=== PATIENT | female | born 1940 | race Caucasian/White ===

== ENCOUNTER 2019-03-02 13:47 | Emergency (ER) | payer MEDICARE, OTHER ==
[~2019-03-02] VITALS: Ht 160 cm; Wt 65.9 kg
[2019-03-02 14:08] VITALS: BP 160/85
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
--- NOTE | 2019-03-02 14:27 | NUR ---
pt to xray.
--- NOTE | 2019-03-02 15:33 | NUR ---
TASK RN: Patient/Caregiver given discharge instructions and they have confirmed that they understand the instructions. Patient ambulatory with steady gait.
--- NOTE | 2019-03-02 15:38 | NUR ---
Patient/Caregiver given discharge instructions and they have confirmed that they understand the instructions. Patient ambulatory with steady gait.
== END 2019-03-02 15:39 | disposition home or self-care (01) ==
LOC: ED 15:17
DX: S39.012A Strain of muscle, fascia and tendon of lower back, initial encounter (principal); S70.02XA Contusion of left hip, initial encounter; S80.02XA Contusion of left knee, initial encounter; I10 Essential (primary) hypertension; W22.8XXA Striking against or struck by other objects, initial encounter; Y93.89 Activity, other specified; Y92.512 Supermarket, store or market as the place of occurrence of the external cause; Y99.8 Other external cause status
CPT/HCPCS: 99283

== ENCOUNTER → 2019-03-09 | Outpatient (CLI) | payer MEDICARE | END | disposition home or self-care (01) | LOC: CFH 14:36 | PROVIDERS: ATTEND Family Medicine | DX: M41.84 Other forms of scoliosis, thoracic region (principal); M47.816 Spondylosis without myelopathy or radiculopathy, lumbar region; M48.54XA Collapsed vertebra, not elsewhere classified, thoracic region, initial encounter for fracture; M41.86 Other forms of scoliosis, lumbar region; M51.36 Other intervertebral disc degeneration, lumbar region; M48.061 Spinal stenosis, lumbar region without neurogenic claudication | CPT/HCPCS: 72072; 72110 ==

== ENCOUNTER → 2019-04-26 | Outpatient (CLI) | payer MEDICARE | END | disposition home or self-care (01) | LOC: CFH 14:30 | PROVIDERS: ATTEND Orthopaedic Surgery | DX: M51.36 Other intervertebral disc degeneration, lumbar region (principal); M41.86 Other forms of scoliosis, lumbar region | CPT/HCPCS: 72110 ==

== ENCOUNTER 2020-07-28 08:35 | Emergency (ER) | payer MEDICARE ==
[~2020-07-28] VITALS: Ht 160 cm; Wt 64.9 kg
--- NOTE | 2020-07-28 08:57 | NUR ---
PATIENT WHEELED BACK FROM TRIAGE WITH CHIEF C/O "NOT FEELING WELL." PER PATIENT SHE STARTED FEELING UNWELL LAST NIGHT, FELT DIZZY AND LIKE HER HEART WAS RACING. AND WAS UNABLE TO HOLD ONTO A WATER BOTTLE. IN TRIAGE PATIENT'S HR IN 160S AND A-FIB ON EKG. PATIENT DOES NOT HAVE HISTORY OF A-FIB. PATIENT ALSO REPORTS SOB. CONNECTED TO MONITOR, NADN, AT BEDSIDE, CALL LIGHT WITHIN REACH. ERMD AT BEDSIDE FOR EVALUATION.
[2020-07-28] MEDS ORDERED: PROPOFOL 10 MG/ML, 20ML ONE (09:14)
[2020-07-28] MEDS ORDERED: DILTIAZEM 5 MG/ML, 5ML ONE (09:14)
--- NOTE | 2020-07-28 09:24 | NUR ---
20 GAUGE IV STARTED LEFT FA, BLOOD COLLECTED, LABELLED AND GIVEN TO PACS ADMINISTRATOR. PATIENT MEDICATED PER eMAR, HR DOWN TO 120'S FROM 160'S. PATIENT SET UP FOR CARDIOVERSION.
[2020-07-28] MEDS ORDERED: DILTIAZEM 5 MG/ML, 5ML IV ONE (09:30)
[2020-07-28] MEDS ORDERED: PROPOFOL 10 MG/ML, 20ML IVPush ONE (09:30)
[2020-07-28] MEDS ORDERED: SODIUM CHLORIDE FLUSH 10ML SYR IVF ONE (09:30)
[2020-07-28 09:33] LABS: BASOPHILS % (AUTO) 1 % (0-1); EOSINOPHILS % (AUTO) 3 % (1-7); LYMPHOCYTES % (AUTO) 34 % (22-44); MEAN CORPUSCULAR HEMOGLOBIN 29.5 pg (27.0-34.8); MEAN CORPUSCULAR HGB CONC 34.3 g/dL (32.4-35.8); MEAN PLATELET VOLUME 8.8 fL (7.4-10.4); MONOCYTES % (AUTO) 11 % (2-9); NEUTROPHILS % (AUTO) 51 % (42-75); PLATELET COUNT 284 x10^3/uL (130-400); RED BLOOD COUNT 5.25 x10^6/uL (3.82-5.3); RED CELL DISTRIBUTION WIDTH 12.7 % (9.6-15.2)
[2020-07-28 09:40] LABS: ANION GAP 9 mmol/L (5-15); CALCIUM 9.5 mg/dL (8.5-10.1); CHLORIDE 110 mmol/L (98-107); CREATININE 0.88 mg/dL (0.55-1.02)
[2020-07-28] MEDS ORDERED: APIXABAN 5 MG TABLET ONE (09:40)
[2020-07-28 09:41] LABS: ALBUMIN 3.7 g/dL (3.4-5.0)
[2020-07-28] MEDS ORDERED: APIXABAN 5 MG TABLET PO ONE (10:00)
--- NOTE | 2020-07-28 10:12 | NUR ---
SECOND EKG DONE, PATIENT SINUS RHYTHM, EKG GIVEN TO QIAN.
--- NOTE | 2020-07-28 10:18 | NUR ---
LATE ENTRY DUE TO PATIENT CARE: TIME OUT FOR CARDIOVERSION AT 1005, 50 MG PROPOFOL ADMINISTERED PER ERMD AT 1006 THROUGH PATIENT'S IV. JOULES TO 150 PER ERMD AND PATIENT CARDIOVERTED AT 1006. VSS STABLE THROUGHOUT PROCEDURE, PATIENT TOLERATED WELL.
--- NOTE | 2020-07-28 10:44 | NUR ---
PATIENT MORE AWAKE, DENIES PAIN, ON PHONE, CONNECTED TO MONITOR, VSS, CALL LIGHT WITHIN REACH. WILL DISCHARGE ONCE PATIENT IS BACK TO BASELINE.
[2020-07-28 11:23] VITALS: BP 127/67
--- NOTE | 2020-07-28 11:25 | NUR ---
IV removed with tip intact. Patient given discharge instructions and prescription and they have confirmed that they understand the instructions. Patient stable, back to pre-sedation baseline, ambulatory with steady gait. NAD, all questions answered appropriately, denies additional needs at this time. No personal belongings left in room after discharge.
== END 2020-07-28 11:26 | disposition home or self-care (01) ==
LOC: ED 09:36
DX: I48.91 Unspecified atrial fibrillation (principal); I10 Essential (primary) hypertension; E03.9 Hypothyroidism, unspecified; J45.909 Unspecified asthma, uncomplicated; R00.0 Tachycardia, unspecified
CPT/HCPCS: 36415; 71045; 80048; 82040; 83735; 84443; 85025; 92960; 93005; 99152; 99291; J2704

== ENCOUNTER → 2020-09-01 | Outpatient (CLI) | payer MEDICARE | END | disposition home or self-care (01) | LOC: CFH 08:55 | PROVIDERS: ATTEND Internal Medicine Cardiovascular Disease | DX: Z13.6 Encounter for screening for cardiovascular disorders (principal); I48.0 Paroxysmal atrial fibrillation; I10 Essential (primary) hypertension; E78.2 Mixed hyperlipidemia | CPT/HCPCS: 75571 ==

== ENCOUNTER → 2020-10-03 | Outpatient (CLI) | payer MEDICARE ==
[~2020-10-03] MED LIST: REGADENOSON 0.4 MG/5 ML SYRINGE ONE
== END | disposition home or self-care (01) ==
LOC: CFH 07:31
PROVIDERS: ATTEND Internal Medicine Cardiovascular Disease
DX: I10 Essential (primary) hypertension (principal); I48.0 Paroxysmal atrial fibrillation; E78.2 Mixed hyperlipidemia
CPT/HCPCS: 78452; 93017; A9502; J2785